=== PATIENT | female | born 1985 | race Hispanic/Latino ===

== ENCOUNTER 2021-09-20 16:01 | Inpatient (IN) | payer OTHER ==
[2021-09-20] MEDS ORDERED: Dextrose 50% Abboject 50 ML SYRINGE ONE (16:24)
[2021-09-20 17:46] LABS: #Eosinphils 0.2 thou/uL (0.0-0.7); #Lymphocytes 1.9 thou/uL (1.20-3.40); #Monocytes 0.4 thou/uL (0.11-0.59); #Neutrophils 4.1 thou/uL (1.40-6.50); %Basophils 0.6 % (0.0-1.0); %Eosinophils 2.7 % (0.0-10.0); %Lymphocytes 28.3 % (21.0-51.0); %Monocytes 5.8 % (0.0-10.0); %Neutrophils 62.6 % (42.0-75.0); Hemoglobin 10.6 g/dL (12.0-16.0); Mean Corpuscular Hemoglobin 30.2 pg (27.0-31.0); Mean Corpuscular Volume 91.7 fL (78.0-98.0); Mean Platelet Volume 7.6 fL (7.4-10.4); Platelet Count 252 thou/uL (130-400); RBC Distribution Width 12.5 % (11.5-14.5); White Blood Cell (WBC) Count 6.5 thou/uL (4.8-10.8)
[2021-09-20 18:06] LABS: ALT (SGPT) 46 U/L (8-55); AST (SGOT) 44 U/L (5-34); Albumin 3.4 g/dL (3.5-5.0); Alkaline Phosphatase 185 U/L (40-110); Anion Gap 14 mmol/L (10-20); BUN (Urea Nitrogen) 20 mg/dL (7.0-18.7); Bilirubin, Total 0.2 mg/dL (0.2-1.2); Calc. Creatinine Clearance 0 mL/min (70-130); Calcium 8.6 mg/dL (7.8-10.44); Carbon Dioxide 28 mmol/L (22-29); Chloride 101 mmol/L (98-107); Globulin 3.3 g/dL (2.4-3.5); Glucose 187 mg/dL (70-105); Potassium 3.8 mmol/L (3.5-5.1); Protein, Total 6.7 g/dL (6.0-8.3); Sodium 139 mmol/L (136-145)
[2021-09-20] MEDS ORDERED: Lorazepam 2 MG/ML VIAL ONE (18:10)
[2021-09-20 19:47] LABS: Bilirubin Negative (Negative); Blood, Urine Negative (Negative); Clarity Clear (Clear); Glucose, Urine (Dipstick) 200 mg/dL (Negative); Ketone, Urine Negative (Negative); Leukocyte Negative Leu/uL (Negative); Nitrite Negative (Negative); Protein, Urine (Dipstick) Negative (Neg-Trace); Urobilinogen Normal mg/dL (Less than 2); pH, Urine 6.5 (5.0-9.0)
[2021-09-20] MEDS ORDERED: Lorazepam 2 MG/ML VIAL SLOW IVP PRN (22:59)
[2021-09-21] MEDS ORDERED: HumaLOG 300 UNITS/3 ML VIAL SC PRN (03:32)
[2021-09-21] MEDS ORDERED: Ondansetron PF 4 MG/2 ML Vial IVP PRN (03:32)
[2021-09-21] MEDS ORDERED: Ondansetron ODT 4 MG TAB PO PRN (03:32)
[2021-09-21] MEDS ORDERED: Dextrose 5% in Water 1,000 ML IV PRN (03:32)
[2021-09-21] MEDS ORDERED: Acetaminophen 650 MG Suppository PR PRN (03:32)
[2021-09-21] MEDS ORDERED: Acetaminophen 325 MG TAB PO PRN (03:32)
[2021-09-21] MEDS ORDERED: Dextrose 50% Abboject 50 ML SYRINGE SLOW IVP PRN (03:32)
[2021-09-21] MEDS ORDERED: Sodium Chloride 0.9% 500 ML IV SCH (04:30)
[2021-09-21] MEDS ORDERED: Lantus 1000 UNITS/10 ML VIAL SC SCH (05:00)
[2021-09-21] MEDS ORDERED: Sodium Chloride 0.9% 1,000 ML IV SCH (05:00)
[2021-09-21 05:02] LABS: Amphetamine Not Detected (NotDetected); Barbiturates Screen Detected (NotDetected); Benzodiazepine Screen Detected (NotDetected); Cocaine Metabolite Screen Not Detected (NotDetected); Methadone Not Detected (NotDetected); Methamphetamine Not Detected (NotDetected); Opiate Screen Detected (NotDetected); Oxycodone Screen Not Detected (NotDetected); Phencyclidine (PCP) Not Detected (NotDetected); THC/Cannabinoid Screen Not Detected (NotDetected); Tricyclic Screen Not Detected (NotDetected)
[2021-09-21 05:14] LABS: #Eosinphils 0.2 thou/uL (0.0-0.7); #Lymphocytes 2.1 thou/uL (1.20-3.40); #Monocytes 0.4 thou/uL (0.11-0.59); #Neutrophils 2.9 thou/uL (1.40-6.50); %Basophils 0.7 % (0.0-1.0); %Eosinophils 3.3 % (0.0-10.0); %Lymphocytes 37.8 % (21.0-51.0); %Monocytes 6.6 % (0.0-10.0); %Neutrophils 51.8 % (42.0-75.0); Hemoglobin 9.8 g/dL (12.0-16.0); Mean Corpuscular HGB CONC 33.1 g/dL (32.0-36.0); Mean Corpuscular Volume 90.7 fL (78.0-98.0); Mean Platelet Volume 7.4 fL (7.4-10.4); Platelet Count 216 thou/uL (130-400); RBC Distribution Width 12.4 % (11.5-14.5); Red Blood Cell (RBC) Count 3.26 mill/uL (4.20-5.40); White Blood Cell (WBC) Count 5.6 thou/uL (4.8-10.8)
[2021-09-21 05:41] LABS: Anion Gap 10 mmol/L (10-20); BUN (Urea Nitrogen) 17 mg/dL (7.0-18.7); Calc. Creatinine Clearance 94 mL/min (70-130); Calcium 8.5 mg/dL (7.8-10.44); Carbon Dioxide 28 mmol/L (22-29); Chloride 105 mmol/L (98-107); Glucose 96 mg/dL (70-105); Sodium 139 mmol/L (136-145)
[2021-09-21] MEDS ORDERED: Naloxone HCl 0.4 mg/ml Vial IV SCH (06:00)
[2021-09-21] MEDS: levETIRAcetam in NS 1,000 MG in Premix Bag 1 BAG IVPB SCH ×2 (07:51→23:31)
[2021-09-21] MEDS ORDERED: levETIRAcetam in NS 1,000 MG in Premix Bag 1 BAG IVPB SCH (09:00)
[2021-09-21 12:24] LABS: SARS-CoV-2 PCR by NAA Not Detected (NotDetected)
[2021-09-22] MEDS: HumaLOG 300 UNITS/3 ML VIAL SC PRN ×3 (06:42→17:48)
[2021-09-22] MEDS ORDERED: Lantus 1000 UNITS/10 ML VIAL SC SCH (09:00)
[2021-09-22] MEDS: levETIRAcetam in NS 1,000 MG in Premix Bag 1 BAG IVPB SCH (09:40)
[2021-09-22 12:24] VITALS: BMI 15.8
[2021-09-22] MEDS ORDERED: Multivit, Therapeutic 1 TAB PO SCH (14:00)
[2021-09-22] MEDS: Pancrelipase DR 12,000 1 CAP PO SCH ×2 (14:40→19:10)
[2021-09-22] MEDS: Acyclovir 800 mg Tablet PO SCH ×2 (14:41)
[2021-09-22 16:44] VITALS: BP 102/58; TEMP 98.2
[2021-09-22] MEDS ORDERED: levETIRAcetam 500 MG TAB PO SCH (21:00)
[2021-09-23] MEDS ORDERED: Multivit, Therapeutic 1 TAB PO SCH (09:00)
== END 2021-09-22 19:20 | DRG 100 ==
LOC: ERS 16:01 → NEURO 19:53 → OBSVTOIN 09-22 10:17
PROVIDERS: ADMIT Student in an Organized Health Care Education/Training Program; ATTEND Internal Medicine
DX: G40.909 Epilepsy, unspecified, not intractable, without status epilepticus (principal); E43 Unspecified severe protein-calorie malnutrition; Z20.822 Contact with and (suspected) exposure to COVID-19; K86.1 Other chronic pancreatitis; G72.81 Critical illness myopathy; D64.9 Anemia, unspecified; F11.10 Opioid abuse, uncomplicated; F13.10 Sedative, hypnotic or anxiolytic abuse, uncomplicated; F19.10 Other psychoactive substance abuse, uncomplicated; G51.0 Bell's palsy; B02.9 Zoster without complications; E10.649 Type 1 diabetes mellitus with hypoglycemia without coma; J45.909 Unspecified asthma, uncomplicated; F32.A Depression, unspecified; Z68.1 Body mass index [BMI] 19.9 or less, adult; Z88.5 Allergy status to narcotic agent; Z88.0 Allergy status to penicillin; Z79.4 Long term (current) use of insulin; Z79.51 Long term (current) use of inhaled steroids; Z79.899 Other long term (current) drug therapy; Z87.442 Personal history of urinary calculi
CPT/HCPCS: 36415; 36416; 70450; 71045; 80177; 80306; 81003; 83605; 84146; 87086; 95712; 95819; 95957; 96374; 96375; 96376; G0378; J1815; J1953; J2060; J2310; J7030; J7050; U0003; U0005